=== PATIENT | female | born 1940 | race American Indian/Alaskan Native ===

== ENCOUNTER 2018-05-17 07:10 | Day surgery (SDC) | payer MEDICARE ==
[2018-05-17 07:57] VITALS: BMI 27.1
[2018-05-17] MEDS ORDERED: Lactated Ringer's 500 ML IV ONE ×2 (08:44)
--- NOTE | 2018-05-17 08:45 | CP.SDSHP ---
Same Day Surgery H & P - History Proposed Procedure: egd. colonoscopy Pre-Op Diagnosis: iron deficiency anemia. heartburn. screening for colon cancer - Previous Medical/Surgical History Cardiac: Hypertension, Other (hyperlipidemia, ) Endocrine/Metabolic: Diabetes Misc: Other (DJD, Osteoporosis, ) Pain: 2.Mild Pain Previous Surgical History: biopsy breast cyst - Allergies Allergies: Allergies No Known Allergies Allergy (Verified 05/17/18 07:56) - Physical Exam Vital Signs: Vital Signs 05/17/18 07:40 Temperature 97.5 F L Pulse Rate 72 Respiratory 19 Rate Blood Pressure 148/65 O2 Sat by Pulse 99 Oximetry Mental Status: Alert & Oriented x3 Neuro: WNL Heart: WNL Lungs: WNL GI: WNL - Impression Impression: iron deficiency anemia. heartburn. screening for colon cancer Pt. Evaluated Today:Candidate for Anesthesia & Procedure: Yes - Date & Time Date: 05/17/18 Time: 08:45 Short Stay Discharge - Short Stay Discharge Admitting Diagnosis/Reason for Visit: ENCOUNTER FOR SCREENING, EPIGASTRIC PAIN, HEARTBUR Disposition: HOME/ ROUTINE
[2018-05-17] MEDS ORDERED: Propofol 10 mg/ml Inj (20 ML) ONE (08:54)
[2018-05-17] MEDS ORDERED: Pantoprazole 40 mg EC Tab PO ONE (09:00)
[2018-05-17 09:41] VITALS: TEMP 97
[2018-05-17 09:46] VITALS: O2SAT 100
[2018-05-17 10:21] VITALS: RESP 16
[2018-05-17 10:29] VITALS: BP 130/82; PULSE 77
== END 2018-05-17 10:20 | disposition home or self-care (01) ==
LOC: C.ENDO 07:10
PROVIDERS: ATTEND Internal Medicine Gastroenterology
DX: D12.3 Benign neoplasm of transverse colon (principal); D50.9 Iron deficiency anemia, unspecified; K21.9 Gastro-esophageal reflux disease without esophagitis; K44.9 Diaphragmatic hernia without obstruction or gangrene; B96.81 Helicobacter pylori [H. pylori] as the cause of diseases classified elsewhere; K29.70 Gastritis, unspecified, without bleeding; K64.8 Other hemorrhoids; K29.80 Duodenitis without bleeding; K57.90 Diverticulosis of intestine, part unspecified, without perforation or abscess without bleeding
CPT/HCPCS: 43239; 45388; 82948; 88305; 88313; 88342; J2704; J7120